=== PATIENT | female | born 1990 | race Caucasian/White ===

== ENCOUNTER 2019-09-21 14:35 | Emergency (ER) | payer OTHER ==
[2019-09-21 15:30] VITALS: BP 119/63
--- NOTE | 2019-09-21 15:33 | UC ---
Lower Extremity/Ankle HPI - HPI Summary HPI Summary: 28 yo female presents with LEFT ankle pain. She tells me that about 1 month ago she was moving furniture and inverted her LEFT ankle. She rested, iced, and elevated - but since that time has had pain and swelling. Hurts to weight bear. She has fractured this ankle in the past. Denies numbness or tingling. - History of Current Complaint Chief Complaint: UCLowerExtremity Stated Complaint: L ANKLE INJ Hx Obtained From: Patient Hx Last Menstrual Period: 09/01/19 Onset/Duration: Sudden Onset Severity Initially: Moderate Severity Currently: Moderate Pain Intensity: 7 Pain Scale Used: 0-10 Numeric - Allergies/Home Medications Allergies/Adverse Reactions: Allergies Allergy/AdvReac Type Severity Reaction Status Date / Time atorvastatin [From Lipitor] Allergy Hives Verified 09/21/19 15:14 morphine Allergy Hives Verified 09/21/19 15:14 Home Medications: Home Medications ALPRAZolam TAB* [Xanax TAB*] 1 mg PO TID PRN 09/21/19 [History Confirmed ] Albuterol HFA INHALER* [Ventolin HFA Inhaler*] 2 puff INH Q4H PRN 09/21/19 [ History Confirmed 09/21/19] Ergocalciferol (Vitamin D2) [Vitamin D2] 50 mcg PO MONTHLY 09/21/19 [History Confirmed 09/21/19] Escitalopram * [Lexapro *] 20 mg PO DAILY 09/21/19 [History Confirmed 09/21/19] Multivitamin [Multivitamins] 1 cap PO DAILY 09/21/19 [History Confirmed 09/21/19 ] Pantoprazole TAB (NF) [Protonix TAB (NF)] 20 mg PO BID 09/21/19 [History Confirmed 09/21/19] Spironolactone TAB* [Aldactone TAB*] 25 mg PO DAILY 09/21/19 [History Confirmed 09/21/19] Varenicline (NF) [Chantix 1 MG TAB (NF)] 1 mg PO BID 09/21/19 [History Confirmed 09/21/19] hydrOXYzine HCL TAB* [Atarax 25 MG TAB*] 25 mg PO BEDTIME PRN 09/21/19 [History Confirmed 09/21/19] lamoTRIgine TAB(*) [LaMICtal TAB(*)] 100 mg PO BEDTIME 09/21/19 [History Confirmed 09/21/19] PMH/Surg Hx/FS Hx/Imm Hx Cardiovascular History: Hypertension Psychological History: Anxiety, Depression, Bipolar Disorder - Surgical History Surgical History: Yes Surgery Procedure, Year, and Place: PTIUITARY TUMOR REMOVAL, C SECTION X'S 3, TONSILECTOMY, TUBAL LIGATION - Family History Known Family History: Positive: Cardiac Disease - Social History Lives: With Family Alcohol Use: None Substance Use Type: None 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 WDWN. No pain distress. SKIN: No rashes, sores, lesions, or open wounds. CHEST: No accessory muscle use. Breathing comfortably and in no distress. CV: Pulses intact PT and DP. Cap refill <2seconds MSK: LEFT ANKLE: Moderate edema about lateral malleolus. Mild TTP about ATFL and posterior malleolus. FROM. Strength 5/5. Negative talar tilt. No increased laxity. Negative [place] test. NEURO: Alert. Sensations intact and symmetric B/L LEs PSYCH: Age appropriate behavior. Triage Information Reviewed: Yes Vital Signs: Initial Vital Signs Temp 98.1 F 09/21/19 15:22 Pulse 54 09/21/19 15:22 Resp 18 09/21/19 15:22 BP 119/63 09/21/19 15:22 Pulse Ox 100 09/21/19 15:22 Vital Signs Reviewed: Yes Diagnostics - Radiology XR ankle Radiology Interpretation Completed By: Radiologist Summary of Radiographic Findings: IMPRESSION: HEEL SPURS. MILD OSTEOARTHRITIS. SOFT TISSUE SWELLING. NO ACUTE OSSEOUS INJURY. IF SYMPTOMS PERSIST, RECOMMEND REPEAT IMAGING. Lower Extremity Course/Dx - Course Course Of Treatment: XR as above. Given length of symptoms - there is a suspicion for a ligament disruption. Pt placed in a CAM boot and advised to continue RICE therapy and f/u with Orthopedics for recheck - Differential Dx/Diagnosis Provider Diagnosis: Left ankle injury Discharge ED - Sign-Out/Discharge Documenting (check all that apply): Patient Departure All imaging exams completed and their final reports reviewed: Yes - Discharge Plan Condition: Stable Disposition: HOME Patient Education Materials: Ankle Strain (ED) Referrals: Ruma Amaya MD [Primary Care Provider] - Jason Peterson MD [Medical Doctor] - As Soon As Possible Additional Instructions: If you develop a fever, shortness of breath, chest pain, new or worsening symptoms - please call your PCP or go to the ED immediately. 1) Rest, Ice, and elevate your ankle to reduce pain and swelling 2) Use the walking boot as much as possible 3) Given your continued symptoms with your ankle - I recommend that you call Orthopedics at the number below to schedule an appointment for a recheck - Billing Disposition and Condition Condition: STABLE Disposition: Home
== END 2019-09-21 16:07 | disposition home or self-care (01) ==
LOC: UCCORT 14:35
DX: S99.912A Unspecified injury of left ankle, initial encounter (principal); M19.072 Primary osteoarthritis, left ankle and foot; M77.32 Calcaneal spur, left foot; M79.89 Other specified soft tissue disorders; F31.9 Bipolar disorder, unspecified; I10 Essential (primary) hypertension; F41.9 Anxiety disorder, unspecified; F32.9 Major depressive disorder, single episode, unspecified; X50.9XXA Other and unspecified overexertion or strenuous movements or postures, initial encounter; Y92.9 Unspecified place or not applicable; Z88.8 Allergy status to other drugs, medicaments and biological substances; Z88.5 Allergy status to narcotic agent; Z87.891 Personal history of nicotine dependence
CPT/HCPCS: 99213; G0463